=== PATIENT | male | born 1940 ===

== ENCOUNTER 2019-08-19 11:30 | Inpatient (IN) | payer OTHER ==
[~2019-08-19] VITALS: Ht 167.6 cm; Wt 81.6 kg
[2019-08-19] MEDS ORDERED: VASOTEC2.5 MG PO (12:16)
[2019-08-19] MEDS ORDERED: ZOCOR20 MG PO (12:16)
[2019-09-02] MEDS ORDERED: CANDESARTAN CILE8 MG PO (15:04)
[2019-09-02] MEDS ORDERED: ZOCOR20 MG PO (15:05)
[2019-09-02] MEDS ORDERED: VASOTEC2.5 MG PO (15:05)
[2019-09-02] MEDS ORDERED: GABAPENTIN300 MG PO (15:06)
[2019-09-02] MEDS ORDERED: INTESTINEX680 M1 PO (15:06)
[2019-09-02] MEDS ORDERED: HYDROCHLOROTH12.5 M1 PO (15:06)
[2019-09-02] MEDS ORDERED: ULTRACET PO (15:09)
== END 2019-09-03 16:06 | disposition home health service (06) | DRG 329 ==
LOC: O/R 08-26 08:53 → SURG 08-26 08:53 → EDBD 08-26 11:30 → O/R 08-26 11:30 → SURG 08-26 20:25
PROVIDERS: ADMIT Colon & Rectal Surgery
PROC: 07BB3ZX Excision of Mesenteric Lymphatic, Percutaneous Approach, Diagnostic (ICD-10-PCS; 2019-08-26)
PROC: 0DJD8ZZ Inspection of Lower Intestinal Tract, Via Natural or Artificial Opening Endoscopic (ICD-10-PCS; 2019-08-26)
PROC: 4A033R1 Measurement of Arterial Saturation, Peripheral, Percutaneous Approach (ICD-10-PCS; 2019-08-26)
PROC: 3E0F7GC Introduction of Other Therapeutic Substance into Respiratory Tract, Via Natural or Artificial Opening (ICD-10-PCS; 2019-08-26)
PROC: 4A12X4Z Monitoring of Cardiac Electrical Activity, External Approach (ICD-10-PCS; 2019-08-26)
PROC: 0DTN4ZZ Resection of Sigmoid Colon, Percutaneous Endoscopic Approach (ICD-10-PCS; principal; 2019-08-26 14:30)
DX: C19 Malignant neoplasm of rectosigmoid junction (principal); B37.1 Pulmonary candidiasis; J15.0 Pneumonia due to Klebsiella pneumoniae; I69.354 Hemiplegia and hemiparesis following cerebral infarction affecting left non-dominant side; E87.2 Acidosis; J95.89 Other postprocedural complications and disorders of respiratory system, not elsewhere classified; J98.11 Atelectasis; K91.0 Vomiting following gastrointestinal surgery; M62.81 Muscle weakness (generalized); R59.0 Localized enlarged lymph nodes; K63.89 Other specified diseases of intestine; I11.9 Hypertensive heart disease without heart failure; G47.33 Obstructive sleep apnea (adult) (pediatric)

== ENCOUNTER 2020-10-01 06:00 | Day surgery (SDC) | payer OTHER ==
[~2020-10-01 06:00] MED LIST: CANDESARTAN CILE8 MG PO; GABAPENTIN300 MG PO; HYDROCHLOROTH12.5 M1 PO; INTESTINEX680 M1 PO; ULTRACET PO; VASOTEC2.5 MG PO; ZOCOR20 MG PO
== END 2020-10-01 10:00 | disposition home or self-care (01) ==
LOC: AMB-ENDOS 06:00
PROVIDERS: ATTEND Colon & Rectal Surgery
DX: D12.4 Benign neoplasm of descending colon (principal); K64.1 Second degree hemorrhoids; Z20.822 Contact with and (suspected) exposure to COVID-19

== ENCOUNTER 2021-12-07 09:13 | Day surgery (SDC) | payer OTHER | END 2021-12-07 14:25 | disposition home or self-care (01) | LOC: AMB-ENDOS 09:13 | PROVIDERS: ATTEND Colon & Rectal Surgery | DX: K92.1 Melena (principal); Z85.038 Personal history of other malignant neoplasm of large intestine; I10 Essential (primary) hypertension; R12 Heartburn ==